=== PATIENT | female | born 1950 | race Two or more races ===

== ENCOUNTER 2017-09-18 15:28 | Emergency (ER) | payer MEDICARE, OTHER ==
[~2017-09-18] VITALS: Ht 154.9 cm; Wt 64.4 kg
[2017-09-18] MEDS ORDERED: METFORMIN HCL500 M1 ORAL (15:39)
[2017-09-18] MEDS ORDERED: FENOFIBRATE200 MG ORAL (15:39)
[2017-09-18] MEDS ORDERED: ATORVASTATIN CA40 MG ORAL (15:39)
[2017-09-18] MEDS ORDERED: PRILOSEC10 M1 ORAL (15:39)
--- NOTE | 2017-09-18 16:20 | Emergency Room Report ---
History of Present Illness General Chief Complaint: General Complaint Source: Patient Present Illness HPI 66-year-old female history of hypertension diabetes presenting with high blood pressure. Patient states that yesterday and today she checks her blood pressure and it was high, says that it is systolic 150. Also states that when she sees her blood pressure her heart rate was high. Denies any fever chills nausea vomiting diarrhea. Complains of slight dysuria yesterday. Has otherwise been eating and drinking well Allergies: Coded Allergies: PENICILLINS (Verified Allergy, Unknown, 09/18/17) Patient History Past Medical History: see triage record Past Surgical History: none Pertinent Family History: none Reviewed Nursing Documentation: PMH: Agreed, PSxH: Agreed Nursing Documentation-PMH Hx Hypertension: Yes Hx Diabetes: Yes Review of Systems All Other Systems: negative except mentioned in HPI Physical Exam Vital Signs Date Time Temp Pulse Resp B/P (MAP) Pulse Ox O2 Delivery O2 Flow Rate FiO2 09/18/17 15:34 98.1 117 18 134/85 98 Room Air Sp02 EP Interpretation: reviewed, normal General Appearance: normal inspection, well appearing, no apparent distress, alert, GCS 15, non-toxic Head: normocephalic, atraumatic Eyes: bilateral eye normal inspection, bilateral eye PERRL, bilateral eye EOMI ENT: normal ENT inspection, normal pharynx, normal voice, moist mucus membranes Neck: normal inspection, full range of motion, supple Respiratory: normal inspection, lungs clear, normal breath sounds, no respiratory distress, no retraction, no wheezing, speaking full sentences, chest symmetrical Cardiovascular #1: normal inspection, regular rate, rhythm, no edema, normal capillary refill Cardiovascular #2: 2+ radial (R), 2+ radial (L) Gastrointestinal: normal inspection, non tender, soft, non-distended, no guarding Musculoskeletal: normal inspection, back normal, normal range of motion, non- tender Neurologic: normal inspection, alert, oriented x3, responsive, euclid operator III-XII nml as tested, motor strength/tone normal, sensory intact, normal gait, speech normal Psychiatric: normal inspection, judgement/insight normal, memory normal Skin: normal inspection, normal color, no rash, warm/dry, well hydrated, normal turgor Medical Decision Making Diagnostic Impression: Primary Impression: High blood pressure ER Course 66-year-old female here with asymptomatic hypertension She is not experiencing any symptoms currently with the exception of mild dysuria DDX: Rule out UTI Patient not having any symptoms at this time, I am not concerned with her blood pressure, it has been normal during ED stay Plan: UA ER course: Patient has remained stable during ED stay. UA negative Pts BP has been < 150 during ED stay NAD Disposition: Patient is to be discharged to home. Patient is instructed to follow up with their primary care doctor within 5 days. Strict return precautions discussed with patient such as fever, chills, chest pain, SOB, nausea, vomiting, which may indicate severe illness. Patient verbalizes understanding and agrees with plan. Please note that this Emergency Department Report was dictated using [employer] therapy nurse technology software, occasionally this can lead to erroneous entry secondary to interpretation by the dictation equipment Rhythm Strip EP Interpretation: Yes Rate: 90 Rhythm: NSR, no PVCs, no ectopy UA negative Last Vital Signs Date Time Temp Pulse Resp B/P (MAP) Pulse Ox O2 Delivery O2 Flow Rate FiO2 09/18/17 15:34 98.1 117 18 134/85 98 Room Air Disposition: HOME, SELF-CARE Condition: Improved Mikhail Ortega M.D. Sep 18, 2017 16:20
[2017-09-18 16:40] LABS: APPEARANCE,URINE CLEAR; KETONES,URINE NEGATIVE (NEGATIVE); LEUKOCYTE ESTERASE ,URINE 1+ (NEGATIVE); NITRITE,URINE NEGATIVE (NEGATIVE); PH,URINE 7 (4.5-8.0); PROTEIN,URINE NEGATIVE (NEGATIVE); UROBILINOGEN,URINE NORMAL MG/DL (0.0-1.0)
[2017-09-18 16:43] LABS: BASOPHILS % (AUTO) 0.9 % (0.0-2.0); EOSINOPHILS % (AUTO) 1.6 % (0.0-3.0); MEAN CORPUSCULAR HEMOGLOBIN 24.7 PG (27.0-31.0); MEAN CORPUSCULAR VOLUME 83 FL (80-99); MEAN PLATELET VOLUME 7.6 FL (6.5-10.1); NEUTROPHILS % (AUTO) 74.5 % (45.0-75.0); PLATELET COUNT 434 K/UL (150-450); RED BLOOD COUNT 5.66 M/UL (4.20-5.40); RED CELL DISTRIBUTION WIDTH 13.3 % (11.6-14.8); WHITE BLOOD COUNT 11.1 K/UL (4.8-10.8)
[2017-09-18 16:51] LABS: AMORPHOUS SEDIMENT,UR FEW /LPF; BACTERIA,URINE FEW /HPF; RBC,URINE 0-2 /HPF (0 - 2); SQUAMOUS EPITHELIAL CELL,UR FEW /LPF (NONE/OCC)
[2017-09-18 16:52] LABS: ANION GAP 9 mmol/L (5-15); CALCIUM 10.7 MG/DL (8.5-10.1); CARBON DIOXIDE 31 MMOL/L (21-32); CHLORIDE 96 MMOL/L (98-107); GLOMERULAR FILTRATION RATE 55.7 mL/min (>60); POTASSIUM 3.7 MMOL/L (3.5-5.1); SODIUM 136 MMOL/L (136-145)
[2017-09-18 17:05] LABS: ALANINE AMINOTRANSFERASE 34 U/L (12-78); ASPARTATE AMINO TRANSFERASE 20 U/L (15-37); TOTAL PROTEIN 8.8 G/DL (6.4-8.2)
[2017-09-18 17:56] VITALS: BP 128/86
[2017-09-18 17:57] VITALS: BP 128/86
== END 2017-09-18 17:55 | disposition home or self-care (01) ==
LOC: EMR 16:20
DX: I10 Essential (primary) hypertension (principal); E11.9 Type 2 diabetes mellitus without complications; R30.0 Dysuria; Z88.0 Allergy status to penicillin
CPT/HCPCS: 36415; 80053; 81001; 81003; 83880; 84484; 85025; 96360; 99284

== ENCOUNTER 2019-01-09 16:49 | Emergency (ER) | payer MEDICARE, OTHER ==
[~2019-01-09] VITALS: Ht 154.9 cm; Wt 66.7 kg
[~2019-01-09 16:49] MED LIST: ATORVASTATIN CA40 MG ORAL; FENOFIBRATE200 MG ORAL; METFORMIN HCL500 M1 ORAL; PRILOSEC10 M1 ORAL
[2019-01-09 16:51] VITALS: BP 164/85
[2019-01-09] MEDS ORDERED: DYAZIDE1 CAP ORAL (16:56)
--- NOTE | 2019-01-09 17:00 | NUR ---
ED Nurse Note: Patient walked into ED c/o lower abdominal pain and dysuria for 1 week. patient reports burning sensation while voiding. patient reports frequent urination. alert awake x4 ambulatory.
--- NOTE | 2019-01-09 17:05 | NUR ---
ED Nurse Note: urine sent to lab
[2019-01-09] MEDS ORDERED: Phenazopyridine 200mg tab ORAL ONE (17:15)
[2019-01-09 17:18] LABS: APPEARANCE,URINE CLEAR; BILIRUBIN, URINE NEGATIVE (NEGATIVE); GLUCOSE, URINE (UA) NEGATIVE (NEGATIVE); KETONES,URINE NEGATIVE (NEGATIVE); LEUKOCYTE ESTERASE ,URINE 2+ (NEGATIVE); NITRITE,URINE NEGATIVE (NEGATIVE); PH,URINE 7 (4.5-8.0); PROTEIN,URINE NEGATIVE (NEGATIVE); UROBILINOGEN,URINE NORMAL MG/DL (0.0-1.0)
[2019-01-09 17:21] LABS: COLOR,URINE YELLOW
--- NOTE | 2019-01-09 17:58 | Emergency Room Report ---
History of Present Illness General Chief Complaint: Female Urogenital Problems Source: Patient Present Illness HPI 68 YO Female presents to the ED c/O dysuria and urinary urgency x 1 week. pt. reports no improvement of her symptoms with OTC treatments. Pt. denies Fevers, chills, nausea or vomiting. She denies abdominal pain/tenderness, low back pain , rashes, discharge, polydipsia or polyuria. Allergies: Coded Allergies: PENICILLINS (Verified Allergy, Unknown, 01/09/19) Patient History Past Medical History: see triage record Past Surgical History: none Pertinent Family History: none Last Menstrual Period: 1998 Now: No Reviewed Nursing Documentation: PMH: Agreed; PSxH: Agreed Nursing Documentation-PMH Past Medical History: No History, Except For Hx Hypertension: Yes Hx Diabetes: Yes Review of Systems All Other Systems: negative except mentioned in HPI Physical Exam Vital Signs Date Time Temp Pulse Resp B/P (MAP) Pulse Ox O2 Delivery O2 Flow Rate FiO2 01/09/19 16:51 98.2 73 14 164/85 98 Room Air Sp02 EP Interpretation: reviewed, normal General Appearance: no apparent distress, alert, GCS 15, non-toxic Head: normocephalic, atraumatic Eyes: bilateral eye normal inspection, bilateral eye PERRL ENT: hearing grossly normal, normal voice Neck: full range of motion Respiratory: lungs clear, normal breath sounds, speaking full sentences Cardiovascular #1: regular rate, rhythm Gastrointestinal: normal bowel sounds, non tender, soft, non-distended, no guarding Genitourinary: normal inspection, no CVA tenderness Musculoskeletal: back normal, gait/station normal, normal range of motion, non- tender Neurologic: alert, oriented x3, responsive, motor strength/tone normal, sensory intact, speech normal, grossly normal Psychiatric: judgement/insight normal Skin: normal color, no rash, warm/dry, well hydrated Lymphatic: no adenopathy Medical Decision Making PA Attestation Dr. Page is my supervising Physician whom patient management has been discussed with. Diagnostic Impression: Primary Impression: UTI (urinary tract infection) Qualified Codes: N30.01 - Acute cystitis with hematuria ER Course 68 YO Female presents to the ED c/O dysuria and urinary urgency x 1 week. pt. reports no improvement of her symptoms with OTC treatments. Pt. denies Fevers, chills, nausea or vomiting. She denies abdominal pain/tenderness, low back pain , rashes, discharge, polydipsia or polyuria. Ddx considered but are not limited to UTi , Pyelo, STI, Stone, Cystitis Vital signs: are WNL, pt. is afebrile H&PE are most consistent with UTI ORDERS: - UA labs are attached --- presence of bacteria with elevation in Leukocytes and hematuria may represent infection or contamination will treat given that pt. is symptomatic. ED INTERVENTIONS: Pyridium PO DISCHARGE: At this time pt. is stable for d/c to home. Will provide printed patient care instructions, and any necessary prescriptions. Care plan and follow up instructions have been discussed with the patient prior to discharge. Labs Test 01/09/19 16:58 Urine Color Yellow Urine Appearance Clear Urine pH 7 (4.5-8.0) Urine Specific [place] 1.005 (1.005-1.035) Urine Protein Negative (NEGATIVE) Urine Glucose (UA) Negative (NEGATIVE) Urine Ketones Negative (NEGATIVE) Urine Blood 1+ (NEGATIVE) Urine Nitrite Negative (NEGATIVE) Urine Bilirubin Negative (NEGATIVE) Urine Urobilinogen Normal MG/DL (0.0-1.0) Urine Leukocyte Esterase 2+ (NEGATIVE) Urine RBC 0-2 /HPF (0 - 2) Urine WBC 2-4 /HPF (0 - 2) Urine Squamous Epithelial Cells Few /LPF (NONE/OCC) Urine Bacteria Few /HPF (NONE) Last Vital Signs Date Time Temp Pulse Resp B/P (MAP) Pulse Ox O2 Delivery O2 Flow Rate FiO2 01/09/19 16:51 98.2 73 16 164/85 96 Room Air Status: improved Disposition: HOME, SELF-CARE Condition: Stable Scripts Fluconazole (DIFLUCAN) 150 Mg Tablet 150 MG PO DAILY, #2 TAB Prov: Sofai Reis 01/09/19 Nitrofurantoin Monohyd/M-Cryst* (MACROBID 100 MG*) 100 Mg Capsule 100 MG ORAL EVERY 12 HOURS for 5 Days, #10 CAP Prov: Sofia Reis 01/09/19 Patient Instructions: Urinary Tract Infection Additional Instructions: Take medications as directed. Follow up with a Primary Care Provider in 3-5 days, even if your symptoms have resolved. --Please review list of primary care clinics, if you do not already have a primary care provider Return sooner to ED if new symptoms occur, or current symptoms become worse. - Please note that this Emergency Department Report was dictated using [employer] rep technology software, occasionally this can lead to erroneous entry secondary to interpretation by the dictation equipment. Sofia Reis Jan 09, 2019 17:58
[2019-01-09] MEDS ORDERED: DIFLUCAN150 MG PO (18:01)
[2019-01-09] MEDS ORDERED: NITROFURANTOIN100 M2 ORAL (18:01)
[2019-01-09 18:17] VITALS: BP 164/85
--- NOTE | 2019-01-09 18:18 | NUR ---
ER DISCHARGE NOTE: Patient is cleared to be discharged per ERPA, pt is aox4, on room air, with stable vital signs. pt was given dc and prescription instructions, pt was able to verbalize understanding, pt id band and iv site removed without complications. pt is able to ambulate with steady gait. pt took all belongings. sandwich/water provided as patient requested
== END 2019-01-09 18:17 | disposition home or self-care (01) ==
LOC: EMR 17:30
DX: N30.01 Acute cystitis with hematuria (principal); E11.9 Type 2 diabetes mellitus without complications; I10 Essential (primary) hypertension; Z88.0 Allergy status to penicillin
CPT/HCPCS: 81003; 99283

== ENCOUNTER 2019-01-22 14:54 | Emergency (ER) | payer MEDICARE, OTHER ==
[~2019-01-22] VITALS: Ht 154.9 cm; Wt 66.7 kg
[~2019-01-22 14:54] MED LIST changes: +DIFLUCAN150 MG PO; +DYAZIDE1 CAP ORAL; +NITROFURANTOIN100 M2 ORAL
[2019-01-22 15:05] VITALS: BP 133/78
--- NOTE | 2019-01-22 15:05 | NUR ---
ED Nurse Note: pt walked in to ED due to pain on left groin area for 3 days. denies n/v/d. pt has hx of hernia on that same spot. pt also c/o burning urination with frequency. per pt, seen by dr 2 weeks before for same sx and finished the antibiotics. AAO x4. respirations even and non-labored noted. skin warm to touch. no open wound noted. will wait for the further order.
[2019-01-22] MEDS ORDERED: Morphine Sulfate 2mg/ml Inj(IV/IM USE ONLY) IVP ONE (15:30)
[2019-01-22] MEDS ORDERED: Isovue-300 100ml vial INJ PRN (15:30)
[2019-01-22 15:38] LABS: APPEARANCE,URINE CLEAR; BILIRUBIN, URINE NEGATIVE (NEGATIVE); COLOR,URINE PALE YELLOW; GLUCOSE, URINE (UA) NEGATIVE (NEGATIVE); KETONES,URINE NEGATIVE (NEGATIVE); LEUKOCYTE ESTERASE ,URINE NEGATIVE (NEGATIVE); NITRITE,URINE NEGATIVE (NEGATIVE); PH,URINE 7 (4.5-8.0); PROTEIN,URINE NEGATIVE (NEGATIVE); UROBILINOGEN,URINE NORMAL MG/DL (0.0-1.0)
[2019-01-22 15:39] LABS: BASOPHILS % (AUTO) 0.7 % (0.0-2.0); EOSINOPHILS % (AUTO) 0.7 % (0.0-3.0); HEMATOCRIT 39.1 % (37.0-47.0); HEMOGLOBIN 12.5 G/DL (12.0-16.0); LYMPHOCYTES % (AUTO) 18.2 % (20.0-45.0); MEAN CORPUSCULAR VOLUME 79 FL (80-99); MONOCYTES % (AUTO) 5.9 % (1.0-10.0); NEUTROPHILS % (AUTO) 74.5 % (45.0-75.0); PLATELET COUNT 358 K/UL (150-450); RED BLOOD COUNT 4.94 M/UL (4.20-5.40); RED CELL DISTRIBUTION WIDTH 13.8 % (11.6-14.8); WHITE BLOOD COUNT 11.8 K/UL (4.8-10.8)
[2019-01-22 15:42] LABS: ANION GAP 11 mmol/L (5-15); BLOOD UREA NITROGEN 14 mg/dL (7-18); CALCIUM 9.7 MG/DL (8.5-10.1); CARBON DIOXIDE 30 MMOL/L (21-32); CHLORIDE 98 MMOL/L (98-107); CREATININE 0.9 MG/DL (0.55-1.30); SODIUM 139 MMOL/L (136-145)
[2019-01-22 15:46] LABS: ALANINE AMINOTRANSFERASE 32 U/L (12-78); ALKALINE PHOSPHATASE 106 U/L (46-116); ASPARTATE AMINO TRANSFERASE 23 U/L (15-37); BILIRUBIN,TOTAL 0.4 MG/DL (0.2-1.0)
--- NOTE | 2019-01-22 15:51 | NUR ---
ED Nurse Note: pt finished drink oral contrast. will wait [address] scan.
--- NOTE | 2019-01-22 17:16 | NUR ---
ED Nurse Note: ct called.
[2019-01-22] MEDS ORDERED: OMEPRAZOLE20 M3 ORAL (17:36)
--- NOTE | 2019-01-22 17:58 | NUR ---
ED Nurse Note: pt came back from CT. lying in bed comfortably. wait for the result.
--- NOTE | 2019-01-22 18:48 | Emergency Room Report ---
History of Present Illness General Chief Complaint: Pain Source: Patient, Medical Record Present Illness HPI This patient complains of pain in her left lower quadrant of her abdomen and pelvis area. She states she feels a "bump" in her left inguinal region. She is concerned she has a hernia. She states she noticed the bump about 3 days ago and has since developed the pain in her left lower abdomen. She has had normal bowel movements. She denies dysuria or hematuria. She denies fever or chills. She denies nausea or vomiting. She has no other complaints. Allergies: Coded Allergies: PENICILLINS (Verified Allergy, Unknown, 01/09/19) Patient History Past Medical History: DM, HTN, other - HLP Social History: Denies: smoking, alcohol use, drug use Reviewed Nursing Documentation: PMH: Agreed; PSxH: Agreed Nursing Documentation-PMH Past Medical History: No History, Except For Hx Hypertension: Yes Hx Diabetes: Yes Review of Systems All Other Systems: negative except mentioned in HPI Physical Exam Vital Signs Date Time Temp Pulse Resp B/P (MAP) Pulse Ox O2 Delivery O2 Flow Rate FiO2 01/22/19 14:59 97.9 87 17 148/88 97 Room Air Sp02 EP Interpretation: reviewed, normal General Appearance: no apparent distress, alert, GCS 15, non-toxic Head: normocephalic, atraumatic Eyes: bilateral eye normal inspection, bilateral eye PERRL ENT: hearing grossly normal, normal pharynx, no angioedema, normal voice Neck: full range of motion, supple/symm/no masses Respiratory: chest non-tender, lungs clear, normal breath sounds, no respiratory distress, no retraction, no accessory muscle use, speaking full sentences Cardiovascular #1: regular rate, rhythm, no edema Gastrointestinal: normal bowel sounds, soft, non-distended, no guarding, no rebound, tenderness - TTP in the LLQ. Tender area in the L. inguinal region with some swelling c/w hernia vs. enlarged LN. Rectal: deferred Musculoskeletal: back normal, gait/station normal, normal range of motion, non- tender Neurologic: alert, oriented x3, responsive, motor strength/tone normal, sensory intact, speech normal Psychiatric: judgement/insight normal, memory normal, mood/affect normal, no suicidal/homicidal ideation Skin: normal color, no rash, warm/dry, well hydrated Medical Decision Making Diagnostic Impression: Primary Impression: Diverticulitis ER Course This patient is found to have diverticulitis on CT. The patient had resolution of her pain and was comfortable. She is requesting food because she was hungry. She is nontoxic here in the emergency department. She is also afebrile. Overall, the patient's abdominal exam is nonsurgical and benign. I did offer the patient admission to the hospital if she felt that she could not do oral antibiotics at home, however, she felt she could. She is given close return precautions and follow-up instructions. Laboratory Tests Test 01/22/19 15:10 01/22/19 15:23 Urine Color Pale yellow Urine Appearance Clear Urine pH 7 (4.5-8.0) Urine Specific [place] 1.005 (1.005-1.035) Urine Protein Negative (NEGATIVE) Urine Glucose (UA) Negative (NEGATIVE) Urine Ketones Negative (NEGATIVE) Urine Blood Negative (NEGATIVE) Urine Nitrite Negative (NEGATIVE) Urine Bilirubin Negative (NEGATIVE) Urine Urobilinogen Normal MG/DL (0.0-1.0) Urine Leukocyte Esterase Negative (NEGATIVE) White Blood Count 11.8 K/UL (4.8-10.8) H Red Blood Count 4.94 M/UL (4.20-5.40) Hemoglobin 12.5 G/DL (12.0-16.0) Hematocrit 39.1 % (37.0-47.0) Mean Corpuscular Volume 79 FL (80-99) L Mean Corpuscular Hemoglobin 25.3 PG (27.0-31.0) L Mean Corpuscular Hemoglobin Concent 31.9 G/DL (32.0-36.0) L Red Cell Distribution Width 13.8 % (11.6-14.8) Platelet Count 358 K/UL (150-450) Mean Platelet Volume 7.7 FL (6.5-10.1) Neutrophils (%) (Auto) 74.5 % (45.0-75.0) Lymphocytes (%) (Auto) 18.2 % (20.0-45.0) L Monocytes (%) (Auto) 5.9 % (1.0-10.0) Eosinophils (%) (Auto) 0.7 % (0.0-3.0) Basophils (%) (Auto) 0.7 % (0.0-2.0) Sodium Level 139 MMOL/L (136-145) Potassium Level 3.0 MMOL/L (3.5-5.1) L Chloride Level 98 MMOL/L (98-107) Carbon Dioxide Level 30 MMOL/L (21-32) Anion Gap 11 mmol/L (5-15) Blood Urea Nitrogen 14 mg/dL (7-18) Creatinine 0.9 MG/DL (0.55-1.30) Estimate Glomerular Filtration Rate > 60 mL/min (>60) Glucose Level 105 MG/DL (74-106) Calcium Level 9.7 MG/DL (8.5-10.1) Total Bilirubin 0.4 MG/DL (0.2-1.0) Aspartate Amino Transferase (AST) 23 U/L (15-37) Alanine Aminotransferase (ALT) 32 U/L (12-78) Alkaline Phosphatase 106 U/L (46-116) Total Protein 8.2 G/DL (6.4-8.2) Albumin 4.0 G/DL (3.4-5.0) Globulin 4.2 g/dL Albumin/Globulin Ratio 1.0 (1.0-2.7) Lipase 123 U/L (73-393) CT/MRI/US Diagnostic Results CT/MRI/US Diagnostic Results : Imaging Test Ordered: CT abd/pelvis Impression Findings of acute on complicated sigmoid diverticulitis without perforation, obstruction or abscess. No other acute findings. See official report in electronic medical record. Last Vital Signs Date Time Temp Pulse Resp B/P (MAP) Pulse Ox O2 Delivery O2 Flow Rate FiO2 01/22/19 15:05 98.1 77 18 133/78 99 Room Air Status: improved Disposition: HOME, SELF-CARE Condition: Improved Referrals: NOT CHOSEN IPA/,REFERRING (PCP) Priti Lozada DO Jan 22, 2019 18:48
[2019-01-22] MEDS ORDERED: METRONIDAZOLE500 MG ORAL (18:55)
[2019-01-22] MEDS ORDERED: CIPROFLOXACIN500 M2 ORAL (18:55)
--- NOTE | 2019-01-22 19:01 | NUR ---
HAND-OFF: Report given to Fredy Johnson RN.
[2019-01-22 19:19] VITALS: BP 133/78
--- NOTE | 2019-01-22 19:19 | NUR ---
ER DISCHARGE NOTE: Patient is cleared to be discharged per ERMD, pt is aox4, on room air, with stable vital signs. pt was given dc and prescription instructions, pt was able to verbalize understanding, pt id band and iv site removed without complications. pt is able to ambulate with steady gait. pt took all belongings.
--- NOTE | 2019-01-23 09:45 | Diagnostic Imaging Report ---
Clinical Indication: Abdominal pain Technique: No oral contrast utilized, per emergency room physician request IV administration nonionic contrast. Venous phase spiral acquisition obtained through the abdomen and pelvis. Multiplanar reconstructions were generated. Total dose length product 872.67 mGycm. CTDIvol(s) 15.23 mGy. Dose reduction achieved using automated exposure control Comparison: none Findings: Normal appendix. There is colonic diverticulosis. There is infiltration of the pericolonic fat surrounding a distal descending colonic diverticulum. No extraluminal gas. No fluid collection. Contrast has traversed most but not quite entirety of the small bowel. It is normal in caliber. No small bowel wall thickening. Esophagus, stomach, duodenum are unremarkable. The liver, gallbladder, bile ducts, pancreas, spleen, adrenals, kidneys are all unremarkable. There is a small cortical scar in the lower pole of the left kidney. No renal or ureteral calculi. No retroperitoneal or mesenteric mass or adenopathy. No pelvic mass or adenopathy. The uterus is absent, presumably postsurgically. The bones demonstrate degenerative spondylosis changes. Included lung bases demonstrate posterior dependent atelectatic changes. The heart is upper limits normal in size. Impression: Positive for uncomplicated acute distal descending colonic diverticulitis. No other significant abnormality Incidental finding left lower pole renal cortical scarring, prior hysterectomy, basilar dependent pulmonary parenchymal atelectasis. This agrees with the preliminary interpretation provided overnight by [facility] teleradiology service. The CT scanner at [facility] is accredited by the [employer] [place] [place] [employer] and the scans are performed using protocols designed to limit radiation exposure to as low as reasonably achievable to attain images of sufficient resolution adequate for diagnostic evaluation.
== END 2019-01-22 19:19 | disposition home or self-care (01) ==
LOC: EMR 15:18
DX: K57.92 Diverticulitis of intestine, part unspecified, without perforation or abscess without bleeding (principal); Z88.0 Allergy status to penicillin; E11.9 Type 2 diabetes mellitus without complications; I10 Essential (primary) hypertension; E78.5 Hyperlipidemia, unspecified; Z90.710 Acquired absence of both cervix and uterus; J98.11 Atelectasis; M47.9 Spondylosis, unspecified
CPT/HCPCS: 36415; 74177; 80053; 81003; 83690; 85025; 96374; 99284; J2270; Q9967; J8499

== ENCOUNTER 2020-06-09 09:39 | Emergency (ER) | payer MEDICARE, OTHER ==
[~2020-06-09] VITALS: Ht 154.9 cm; Wt 64.0 kg
[~2020-06-09 09:39] MED LIST changes: +CIPROFLOXACIN500 M2 ORAL; +METRONIDAZOLE500 MG ORAL; +OMEPRAZOLE20 M3 ORAL
[2020-06-09 10:00] VITALS: BP 151/89
[2020-06-09] MEDS ORDERED: cefTRIAXone 1 GM in NS 55 ML IV ONE (10:00)
[2020-06-09 10:33] LABS: APPEARANCE,URINE SLIGHTLY CLOUDY; GLUCOSE, URINE (UA) NEGATIVE (NEGATIVE); KETONES,URINE NEGATIVE (NEGATIVE); LEUKOCYTE ESTERASE ,URINE 3+ (NEGATIVE); NITRITE,URINE POSITIVE (NEGATIVE); PH,URINE 5 (4.5-8.0); PROTEIN,URINE 2+ (NEGATIVE); UROBILINOGEN,URINE 1 MG/DL (0.0-1.0)
[2020-06-09 10:43] LABS: BILIRUBIN, URINE 1+ (NEGATIVE)
--- NOTE | 2020-06-09 10:43 | Diagnostic Imaging Report ---
Indication: Lower abdominal pain for 2 days Technique: Spiral acquisitions obtained through the abdomen and pelvis. No oral contrast utilized, per emergency room physician request No IV contrast utilized, per referring physician request.. Multiplanar reconstructions were generated. Total dose length product 305 mGycm. CTDIvol(s) 5 mGy. Dose reduction achieved using automated exposure control Comparison: None Findings: Lack of enteric contrast limits assessment of the GI tract. There is colonic diverticulosis. No evidence of acute diverticulitis. The appendix is normal. No small bowel distention. No free or loculated intraperitoneal gas or fluid is evident. The distal esophagus, stomach, duodenum are unremarkable. Lack of IV contrast limits assessment of the solid organs. The liver, gallbladder, bile ducts, pancreas, spleen, adrenals, kidneys are unremarkable. The bladder is empty, appears unremarkable. No retroperitoneal or mesenteric mass or adenopathy. No pelvic mass or adenopathy. The uterus is absent. The included lung bases are clear. There is a small fat-containing Bochdalek hernia on the right. The bones are unremarkable. Impression: Limited assessment of the GI tract, due to lack of enteric contrast administration No definite acute abnormality Grossly unremarkable bladder Colonic diverticulosis. No evidence of acute diverticulitis Incidental findings of prior hysterectomy, small fat-containing right-sided Bochdalek hernia The CT scanner at [facility] is accredited by the [place] [employer] and the scans are performed using protocols designed to limit radiation exposure to as low as reasonably achievable to attain images of sufficient resolution adequate for diagnostic evaluation.
[2020-06-09 10:45] LABS: COLOR,URINE YELLOW
[2020-06-09] MEDS ORDERED: Morphine Sulfate 2mg/ml Inj(IV/IM USE ONLY) IVP ONE (11:00)
[2020-06-09 11:07] LABS: BASOPHILS % (AUTO) 0.7 % (0.0-2.0); EOSINOPHILS % (AUTO) 1.3 % (0.0-3.0); HEMATOCRIT 43.2 % (37.0-47.0); HEMOGLOBIN 13.6 G/DL (12.0-16.0); LYMPHOCYTES % (AUTO) 19.4 % (20.0-45.0); MEAN CORPUSCULAR VOLUME 81 FL (80-99); NEUTROPHILS % (AUTO) 73.6 % (45.0-75.0); PLATELET COUNT 341 K/UL (150-450); RED BLOOD COUNT 5.34 M/UL (4.20-5.40); RED CELL DISTRIBUTION WIDTH 14.3 % (11.6-14.8); WHITE BLOOD COUNT 8.5 K/UL (4.8-10.8)
[2020-06-09 11:14] LABS: INR 0.9 (0.9-1.1)
[2020-06-09 11:22] LABS: ANION GAP 10 mmol/L (5-15); BLOOD UREA NITROGEN 15 mg/dL (7-18); CARBON DIOXIDE 26 MMOL/L (21-32); CHLORIDE 102 MMOL/L (98-107); CREATININE 0.8 MG/DL (0.55-1.30); POTASSIUM 3.8 MMOL/L (3.5-5.1); SODIUM 138 MMOL/L (136-145)
[2020-06-09 11:32] LABS: ALANINE AMINOTRANSFERASE 26 U/L (12-78); ALBUMIN 4.2 G/DL (3.4-5.0); ALKALINE PHOSPHATASE 116 U/L (46-116); ASPARTATE AMINO TRANSFERASE 16 U/L (15-37); BILIRUBIN,TOTAL 0.5 MG/DL (0.2-1.0)
[2020-06-09] MEDS ORDERED: TYLENOL EXTRA500 MG ORAL (11:53)
[2020-06-09] MEDS ORDERED: CEPHALEXIN500 MG ORAL (11:53)
[2020-06-09] MEDS ORDERED: COLACE100 MG ORAL (11:53)
[2020-06-09] MEDS ORDERED: ONDANSETRON ODT4 MG BC (11:53)
--- NOTE | 2020-06-09 11:53 | Emergency Room Report ---
History of Present Illness General Chief Complaint: Abdominal Pain Source: Patient Present Illness HPI 61-year-old diabetic, HLD female here with dysuria and abdominal pain x several months. Pt saw her PMD 2 weeks ago who diagnosed her with UTI and gave her abx that she feels are not working. She is unable to recall the name of the abx. She finished it last week. The patient's symptoms were gradual onset, severity was moderate, duration since30 days Quality: burning urination Admits to mild anorexia but denies flank pain, hematochezia, melena, hematuria, back pain, CP SOB or other symptoms. Past medical history: DM HLD obesity Past surgical history: Hysterectomy Smoking: Denies Alcohol use: Denies Drug use: Denies Review of systems: CONST: No fevers or chills, No night sweats PULMONARY: No productive cough, No shortness of breath CARDIAC: No chest pain, No palpitations GI: No vomiting, +constipation; No diarrhea , No melena_or_BRBPR : + dysuria, No hematuria, No discharge NEURO: No new_focal_weakness_or_numbness, No confusion, No vision changes 14 point Review of Systems is otherwise negative except per HPI Physical Exam: GENERAL: Awake_alert_ nontoxic, no acute distress Spo2 98% on RA -normal EYES: Extraocular muscles are intact. Conjunctivae clear. Lids without swelling ENT: External nose and ear normal_in_appearance. Oropharynx clear. Head_ atraumatic, Moist_oral_mucosa NECK: No JVD. No meningismus. No thyromegaly. Supple. Trachea midline RESP: Normal respiratory effort. Symmetric rise. No stridor. Clear_to_ auscultation_No_rales_No_wheezes CARDIAC: Regular rate and regular rhytm. No_significant pedal edema. ABDOMEN: Soft. Nondistended. Nontender_No_rebound_or_guarding. No hernia or masses noted. MSK: Normal muscle tone, without rigidity. Extremities without asymmetric deformity or swelling. SKIN: Warm and dry. No visible cyanosis or pallor NEUROLOGIC: Alert, oriented x3. Motor_and_sensation_grossly_intact. No truncal ataxia. Gait_normal Psych: Normal mood and affect, normal judgment and insight - COORDINATION OF CARE Case was discussed with: Patient Any labs and imaging that were ordered were interpreted as part of the medical decision making: Medical Decision Making/Plan: Differential diagnosis includes cholecystitis, choledocholithiasis, hepatitis, small bowel obstruction, volvulus, AAA, pancreatitis, atypical appendicitis, gastroparesis, gastritis, peptic ulcer disease, among others. Patient is well appearing with stable vital signs. Abdominal exam is non peritoneal with no guarding or rebound. Mild TTP in the R suprapubic area. Labs show no acute abnormalities. UA is consistent with UTI. CT abd/pelvis shows non obstructing hernia with only fat, diverticulosis without diverticulitis, an no acute surgical abnormalities . No obstructive uropathy or renal abscess The patient denies any bloody stool and has no pain out of proportion to exam, and no significant risk factors for mesenteric ischemia such as atrial fibrillation or severe PAD/PVD (peripheral arterial / vascular disease), thus definitive workup to rule out mesenteric ischemia was not pursued. Patient is afebrile, without any significant tenderness in the RUQ, and a negative [place] sign. The patients presentation does not appear to be consistent with acute cholecystitis and thus definitive imaging to rule it out was not pursued. The patient has no significant risk factors for AAA (abdominal aortic aneurysm) such as age over 50 with history of hypertension, connective tissue disorder, or 1st degree relative with AAA. the patient has normal dorsalis pedis pulses, no radiation of pain to the back, and no pulsatile mass felt on exam. The patients profile was overall low risk for AAA and definitive workup was not pursued. The patients symptoms are not consistent with ACS (acute coronary syndrome), symptoms are not exertional, EKG without obvious ischemic change. Pt is able to tolerate PO upon discharge. Will DC with keflex, zofran and tylenol. Pt was informed of her finding of diverticulosis. Recommend increased hydration, fiber, and f/u GI for routine colonoscopy. She was instructed to f/u PMD In 1-2 days and for referral to [facility] as outpatient for elective repair of her hernia. Pt is in agreement with DC home with close outpatient f/u. Strict 911 return precautions discussed. 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 Patient History Now: No Nursing Documentation-PMH Hx Hypertension: Yes Hx Diabetes: Yes Physical Exam Vital Signs Date Time Temp Pulse Resp B/P (MAP) Pulse Ox O2 Delivery O2 Flow Rate FiO2 06/09/20 09:42 97.9 80 20 155/88 (110) 95 Room Air Sp02 EP Interpretation: reviewed, normal Medical Decision Making Diagnostic Impression: Primary Impression: UTI (urinary tract infection) Additional Impressions: Pyelonephritis Bochdalek hernia Abdominal pain Nausea CT/MRI/US Diagnostic Results CT/MRI/US Diagnostic Results : Impression CT Abdomen Pelvis WO Contrast Indication: Lower abdominal pain for 2 days Findings: Lack of enteric contrast limits assessment of the GI tract. There is colonic diverticulosis. No evidence of acute diverticulitis. The appendix is normal. No small bowel distention. No free or loculated intraperitoneal gas or fluid is evident. The distal esophagus, stomach, duodenum are unremarkable. Lack of IV contrast limits assessment of the solid organs. The liver, gallbladder, bile ducts, pancreas, spleen, adrenals, kidneys are unremarkable. The bladder is empty, appears unremarkable. No retroperitoneal or mesenteric mass or adenopathy. No pelvic mass or adenopathy. The uterus is absent. The included lung bases are clear. There is a small fat-containing Bochdalek hernia on the right. The bones are unremarkable. Impression: Limited assessment of the GI tract, due to lack of enteric contrast administration No definite acute abnormality Grossly unremarkable bladder Colonic diverticulosis. No evidence of acute diverticulitis Incidental findings of prior hysterectomy, small fat-containing right-sided Bochdalek hernia Reevaluation Time: 11:51 Last Vital Signs Date Time Temp Pulse Resp B/P (MAP) Pulse Ox O2 Delivery O2 Flow Rate FiO2 06/09/20 10:00 88 20 Room Air 06/09/20 10:00 98.3 151/89 97 Status: improved Disposition: HOME, SELF-CARE Admit Decision Time: 11:51 Condition: Stable Scripts Acetaminophen* (TYLENOL EXTRA STRENGTH*) 500 Mg Tablet 500 MG ORAL Q8H PRN for Prn Headache/Temp > 101, #30 TAB 0 Refills Prov: Maryana Wakefield D.O. 06/09/20 Ondansetron Odt* (ZOFRAN ODT*) 4 Mg Tab.rapdis 4 MG BC EVERY 6 HOURS PRN for Nausea & Vomiting, #10 TAB 0 Refills Prov: Maryana Wakefield D.O. 06/09/20 Docusate Sodium* (COLACE*) 100 Mg Capsule 100 MG ORAL DAILY for 14 Days, #28 CAP Prov: Maryana Wakefield D.O. 06/09/20 Cephalexin* (KEFLEX*) 500 Mg Capsule 500 MG ORAL EVERY 12 HOURS for 10 Days, #20 CAP 0 Refills Prov: Maryana Wakefield D.O. 06/09/20 Referrals: NOT CHOSEN IPA/MD,REFERRING (PCP) Patient Instructions: Abdominal Pain, Adult, Hernia, Adult, [id number], Urinary Tract Infection, [id number] Additional Instructions: Instructions for patient/data review specialist: Follow up with your physician in 1-2 days FOR repeat abdominal examination. Follow-up with your doctor sooner for repeat abdominal examination. You will need outpatient follow-up for your hernia within 1 month. Return to the emergency department immediately if you feel that your condition is worsening or if you have any new or concerning symptoms. Review your discharge instructions and take any prescriptions given as instructed. You had a urine culture done to evaluate for specific types of bacteria associated with your urinary infection. You were given an antibiotic that should treat most bacteria that usually occur with a urinary infection, but there is always the possibility of antibiotic resistance. You will receive a telephone call if it is positive. If you do not receive a call, they are likely negative, but you should return to medical records to get your results to be sure, or have your primary doctor obtain them from our hospital, and especially if you are having persistent symptoms. If you are having persistent symptoms and are not able to get a hold of your culture results or your regular doctor you should return to the ER for a reevaluation. Maryana Wakefield D.O. Jun 09, 2020 11:53
[2020-06-09 12:11] VITALS: BP 148/84
[2020-06-09 12:30] VITALS: BP 154/81
== END 2020-06-09 12:30 | disposition home or self-care (01) ==
LOC: EMR 10:15
DX: N39.0 Urinary tract infection, site not specified (principal); N12 Tubulo-interstitial nephritis, not specified as acute or chronic; K46.9 Unspecified abdominal hernia without obstruction or gangrene; R11.0 Nausea; E78.5 Hyperlipidemia, unspecified; E11.9 Type 2 diabetes mellitus without complications; Z90.710 Acquired absence of both cervix and uterus; Z88.0 Allergy status to penicillin; I10 Essential (primary) hypertension; K57.90 Diverticulosis of intestine, part unspecified, without perforation or abscess without bleeding
CPT/HCPCS: 36415; 74176; 80053; 81003; 83690; 84484; 85025; 85610; 85730; 87086; 87181; 96365; 96375; 99284; J0696; J2270; J2405; J7030